=== PATIENT | female | born 1975 ===

== ENCOUNTER 2018-02-25 20:23 | Emergency (ER) | payer OTHER ==
[2018-02-25 20:23] VITALS: BMI 21.6
[2018-02-25 20:54] VITALS: O2SAT 99
[2018-02-25] MEDS ORDERED: Sodium Chloride 0.9% 1,000 ML IV ONE ×2 (21:12→22:06)
[2018-02-25] MEDS ORDERED: DiphenhydrAMINE 50 mg/ml Inj IVP STA (21:12)
--- NOTE | 2018-02-25 21:12 | C.PDOC ---
History Of Present Illness The patient, whose PMHx includes kidney stones, presents to the ED for evaluation of right flank pain that radiates to groin which began earlier today. Patient also reports associated nausea, vomiting, diarrhea, and decreased PO intake. She denies fever, chills. Time Seen by Provider: 02/25/18 21:12 Chief Complaint (Nursing): Abdominal Pain History Per: Patient History/Exam Limitations: no limitations Onset/Duration Of Symptoms: Hrs Current Symptoms Are (Timing): Still Present Severity: Mild Pain Scale Rating Of: 2 Radiation Of Pain To:: Flank (right) Quality Of Discomfort: Sharp, Stabbing, "Pain" Associated Symptoms: Nausea, Vomiting, Diarrhea. denies: Fever, Chills Exacerbating Factors: None Alleviating Factors: None Last Bowel Movement: Today Recent travel outside of the [place]: No Additional History Per: Patient Abnormal Vaginal Bleeding: No Past Medical History Reviewed: Historical Data, Nursing Documentation, Vital Signs Vital Signs: Last Vital Signs Temp 97.7 F 02/25/18 23:02 Pulse 62 02/25/18 23:02 Resp 18 02/25/18 23:02 BP 113/74 02/25/18 23:02 Pulse Ox 99 02/25/18 23:02 - Medical History PMH: Gastritis, Migraine Surgical History: Endoscopy, Tonsillectomy (07/23/15) Family History: States: Unknown Family Hx - Social History Hx Tobacco Use: No Hx Alcohol Use: No Hx Substance Use: No - Immunization History Hx Tetanus Toxoid Vaccination: No Hx Influenza Vaccination: Yes Hx Pneumococcal Vaccination: No Review Of Systems Constitutional: Negative for: Fever, Chills Cardiovascular: Negative for: Chest Pain, Palpitations Respiratory: Negative for: Cough, Shortness of Breath Gastrointestinal: Positive for: Nausea, Vomiting, Diarrhea. Negative for: Abdominal Pain Genitourinary: Negative for: Dysuria, Frequency, Hematuria Musculoskeletal: Positive for: Other (right flank pain radiating to right groin ) Skin: Negative for: Rash, Lesions, Jaundice, Bruising Neurological: Negative for: Weakness, Numbness Physical Exam - Physical Exam Appears: Non-toxic, No Acute Distress Skin: Warm, Dry Head: Normacephalic Eye(s): bilateral: Normal Inspection Oral Mucosa: Moist Neck: Supple Chest: Symmetrical, No Deformity, No Tenderness Cardiovascular: Rhythm Regular Respiratory: No Rales, No Rhonchi, No Wheezing Gastrointestinal/Abdominal: Soft, No Tenderness, No Guarding, No Rebound Back: Other (right flank tenderness ) Extremity: Normal ROM Neurological/Psych: Oriented x3 ED Course And Treatment - Laboratory Results Result Diagrams: 02/25/18 21:39 02/25/18 21:39 O2 Sat by Pulse Oximetry: 99 (on RA) Pulse Ox Interpretation: Normal Progress Note: Bloodwork and urinalysis ordered and reviewed. Benadryl IVP, Pepcid IVP, Solu-Medrol IV, Toradol IVP, Zofran IVP and IV Fluids given. Reevaluation Time: 23:17 Reassessment Condition: Improved Disposition Counseled Patient/Family Regarding: Studies Performed, Diagnosis, Need For Followup, Rx Given - Disposition Referrals: Edison Krishnan MD [Staff Provider] - Disposition: HOME/ ROUTINE Disposition Time: 21:12 Condition: FAIR Prescriptions: Ondansetron ODT [Zofran ODT] 1 odt PO BID PRN #6 odt PRN Reason: Nausea/Vomiting Tamsulosin [Flomax] 0.4 mg PO DAILY #15 cap traMADol [Ultram] 50 mg PO QID PRN #20 tab PRN Reason: Pain, Severe (8-10) Instructions: Renal Colic (DC), Kidney Stones (DC), How to Strain Your Urine, Hydronephrosis, Adult (DC) Forms: [employer] (Portuguese) Print Language: RWANDAN - Clinical Impression Clinical Impression: Abdominal pain, Renal colic on right side, Kidney stone on right side, Hydronephrosis - Scribe Statement The provider has reviewed the documentation as recorded by the Scribe (Angélica Negrete) Provider Attestation: All medical record entries made by the Scribe were at my direction and personally dictated by me. I have reviewed the chart and agree that the record accurately reflects my personal performance of the history, physical exam, medical decision making, and the department course for this patient. I have also personally directed, reviewed, and agree with the discharge instructions and disposition.
[2018-02-25 21:43] LABS: BASO % 0.3 % (0.0-2.0); EOS % 0.4 % (0.0-4.0); HEMOGLOBIN 11.7 g/dL (11.0-16.0); LYMPH # 1.1 K/uL (1.0-4.3); LYMPH % 12.5 % (20.0-40.0); MEAN CELL VOLUME 90.4 fL (81.0-99.0); MEAN CORPUSCULAR HEMOGLOBIN 30.5 pg (27.0-31.0); MEAN CORPUSCULAR HGB CONC 33.7 g/dL (33.0-37.0); MEAN PLATELET VOLUME 8.6 fL (7.2-11.7); MONO # 0.5 K/uL (0.0-0.8); MONO % 5.3 % (0.0-10.0); NEUT # 7.4 K/uL (1.8-7.0); NEUT % 81.5 % (50.0-75.0); NRBC % 0.1 % (0.0-2.0); RBC 3.85 Mil/uL (3.80-5.20); RED CELL DISTRIBUTION WIDTH 13.6 % (11.5-14.5); WHITE BLOOD COUNT 9.1 K/uL (4.8-10.8)
[2018-02-25] MEDS ORDERED: DiphenhydrAMINE 50 mg/ml Inj ONE (21:55)
[2018-02-25 21:56] LABS: HCG,QUALITATIVE URINE NEGATIVE (NEGATIVE)
[2018-02-25 21:57] LABS: SQUAMOUS EPITHIAL 4 /hpf (0-5); URINE BILIRUBIN NEGATIVE (NEGATIVE); URINE BLOOD NEGATIVE (NEGATIVE); URINE CLARITY Hazy (Clear); URINE COLOR Yellow (YELLOW); URINE GLUCOSE (UA) NORMAL (Normal); URINE LEUKOCYTE ESTERASE NEG Leu/uL (Negative); URINE PROTEIN 1+ mg/dL (NEGATIVE); URINE UROBILINOGEN NORMAL mg/dL (0.2-1.0)
[2018-02-25 21:58] LABS: ALB/GLOB RATIO 1.6 (1.0-2.1); ALBUMIN 4.7 g/dL (3.5-5.0); ALT/SGPT 33 U/L (9-52); AST/SGOT 33 U/L (14-36); BLOOD UREA NITROGEN 15 mg/dL (7-17); CALCIUM 9.5 mg/dl (8.6-10.4); GFR AFRICAN-AMERICAN > 60; GFR NON-AFRICAN AMERICAN > 60; LIPASE 108 U/L (23-300)
[2018-02-25 21:59] LABS: INR 1.1; PROTHROMBIN TIME 12.4 SECONDS (9.7-12.2)
[2018-02-25] MEDS ORDERED: Morphine 4 MG/ML VIAL ONE (22:36)
[2018-02-25 23:03] VITALS: BP 113/74; PULSE 62; RESP 18; TEMP 97.7
--- NOTE | 2018-02-26 08:49 | CT ---
PROCEDURE: CT Abdomen and Pelvis without intravenous contrast HISTORY: right flank pain, hx of kidney stones COMPARISON: None. TECHNIQUE: Multiple contiguous axial images were performed through the abdomen and pelvis without the use intravenous contrast. Subsequently, sagittal and coronal reformatted images were obtained. Radiation dose: Total exam DLP = four hundred thirty-five mGy-cm. This CT exam was performed using one or more of the following dose reduction techniques: Automated exposure control, adjustment of the mA and/or kV according to patient size, and/or use of iterative reconstruction technique. FINDINGS: LOWER THORAX: Unremarkable. LIVER: Unremarkable. No gross lesion or ductal dilatation. GALLBLADDER AND BILE DUCTS: Unremarkable. PANCREAS: Unremarkable. No gross lesion or ductal dilatation. SPLEEN: Unremarkable. ADRENALS: Unremarkable. No mass. KIDNEYS AND URETERS: Hydronephrosis of the right kidney secondary to an obstructing 3.6 millimeter calculus in the right ureterovesicular junction. Nonobstructing 5 mm calculus in the lower pole of the right kidney. 1.9 centimeter low-attenuation cyst in the right kidney. VASCULATURE: Unremarkable. No aortic aneurysm. BOWEL: Unremarkable. No obstruction. No gross mural thickening. APPENDIX: Unremarkable. Normal appendix. PERITONEUM: Small amount of free fluid in the posterior pelvic cul-de-sac. LYMPH NODES: Unremarkable. No enlarged lymph nodes. BLADDER: Unremarkable. REPRODUCTIVE: Unremarkable. BONES: Prominent Schmorl's node and/or endplate sclerosis at the inferior endplate of the T10 vertebral body. OTHER FINDINGS: Multiple calcified phleboliths in the pelvis. IMPRESSION: Hydronephrosis of the right kidney secondary to an obstructing 3.6 millimeter calculus in the right ureterovesicular junction. Additional findings as above. These findings were preliminarily reported at 11:09 p.m. on 02/25/[address] Rudolph Celaya from [facility].
== END 2018-02-25 23:32 | disposition home or self-care (01) ==
LOC: C.ER 20:23
DX: N20.0 Calculus of kidney (principal); N13.30 Unspecified hydronephrosis; R10.9 Unspecified abdominal pain
CPT/HCPCS: 74176; 80053; 81001; 83690; 84703; 85025; 85610; 85730; 96361; 96374; 96375; 96376; 99285; J1200; J1885; J2270; J2405; J2930; J7030